=== PATIENT | male | born 1955 | race Caucasian/White ===

== ENCOUNTER → 2016-10-06 | Outpatient (CLI) | payer OTHER ==
[~2016-10-06] MED LIST: ALPR.5 PO; ASPI1TAB69 PO; BISO5TAB5 PO; CYCL1TAB29 PO; GABA300C5 PO; HYDR-3535 PO
[2016-10-06 12:08] LABS: AUTOMATED NEUTROPHIL # 4.1 TH/MM3 (1.8-7.7); BASOPHIL % 0.3 % (0.0-2.0); EOSINOPHIL # 0.1 TH/MM3 (0-0.4); EOSINOPHIL % 2.4 % (0.0-4.0); HEMATOCRIT 51.6 % (39.0-51.0); HEMO FLAGS DIFF FINAL; LYMPH % 22.5 % (9.0-44.0); LYMPHOCYTE # 1.4 TH/MM3 (1.0-4.8); MEAN CELL VOLUME 89.4 FL (80.0-100.0); MEAN CORPUSCULAR HGB CONC 33.6 % (32.0-36.0); MONO % 7.1 % (0.0-8.0); NEUT % 67.7 % (16.0-70.0); PLATELET COUNT 224 TH/MM3 (150-450); RED BLOOD COUNT 5.77 MIL/MM3 (4.50-5.90); RED CELL DISTRIBUTION WIDTH 13.7 % (11.6-17.2); WHITE BLOOD COUNT 6.1 TH/MM3 (4.0-11.0)
[2016-10-06 12:16] LABS: ALT (GPT) 24 U/L (12-78); ANION GAP 5 MEQ/L (5-15); AST (GOT) 30 U/L (15-37); BICARBONATE 29.8 MEQ/L (21.0-32.0); BLOOD UREA NITROGEN 9 MG/DL (7-18); CHLORIDE 105 MEQ/L (98-107); GLOMERULAR FILTRATION RATE 77 ML/MIN (>89); GLUCOSE,FASTING 91 MG/DL (74-99); POTASSIUM 4.4 MEQ/L (3.5-5.1); SODIUM (NA) 140 MEQ/L (136-145)
[2016-10-06 12:19] LABS: ALKALINE PHOSPHATASE 95 U/L (45-117); TOTAL BILIRUBIN ADULT 1.4 MG/DL (0.2-1.0)
== END ==
LOC: CLAB 11:19
PROVIDERS: ATTEND Family Medicine
DX: I10 Essential (primary) hypertension (principal); F41.9 Anxiety disorder, unspecified; R05 Cough
CPT/HCPCS: 36415; 80053; 84153; 85025

== ENCOUNTER → 2017-05-04 | Outpatient (CLI) | payer OTHER ==
[~2017-05-04] MED LIST changes: +CYCL10TA PO; -CYCL1TAB29 PO
--- NOTE | 2017-05-12 12:26 | RSPPFT ---
DATE OF PROCEDURE: 05/04/17 COMMENTS: VOLUMES DYNAMIC: FVC and FEV1 moderately reduced. STATIC: TLC, FRC moderately reduced; RV normal. FLOWS: FEV1% mildly reduced; FEF 25-75 severely reduced. DIFFUSION: Moderately reduced. FLOW VOLUME LOOP: Pattern of variable intrathoracic airways obstruction. IMPRESSION: Moderately severe obstructive ventilatory defect with mild restriction as well. There is a moderate reduction in diffusion and a significant increase in airways resistance. There is no significant improvement post-bronchodilator.
== END ==
LOC: HRSP 12:10
PROVIDERS: ATTEND Internal Medicine
DX: J84.10 Pulmonary fibrosis, unspecified (principal)
CPT/HCPCS: 94060; 94618; 94726; 94729

== ENCOUNTER → 2017-06-22 | Outpatient (CLI) | payer OTHER ==
[~2017-06-22] MED LIST changes: +AUGM875T3 PO; +AZIT250T3 PO; +BISO5TAB2 PO; +COLA100C5 PO; +HYDR-3516 PO; +MONT10TA4 PO; +NAPR220C22 PO; +OXYGENDME NAS.CANULA
[2017-06-22 11:37] LABS: HEMATOCRIT 53.3 % (39.0-51.0); HEMOGLOBIN 18.4 GM/DL (13.0-17.0); MEAN CELL VOLUME 88.3 FL (80.0-100.0); MEAN CORPUSCULAR HEMOGLOBIN 30.5 PG (27.0-34.0); MEAN CORPUSCULAR HGB CONC 34.5 % (32.0-36.0); MEAN PLATELET VOLUME 8.6 FL (7.0-11.0); PLATELET COUNT 227 TH/MM3 (150-450); RED BLOOD COUNT 6.03 MIL/MM3 (4.50-5.90); RED CELL DISTRIBUTION WIDTH 13.6 % (11.6-17.2); WHITE BLOOD COUNT 6.2 TH/MM3 (4.0-11.0)
--- NOTE | 2017-06-22 11:53 | RADRPT ---
EXAM DATE/TIME: 06/22/2017 11:20 [place] COMPARISON: No previous studies available for comparison. INDICATIONS : Evaluate for pneumonia, pneumothorax and communicable diseases. Pre-op right lung biopsy. MEDICAL HISTORY : None. SURGICAL HISTORY : None. ENCOUNTER: Initial ACUITY: 1 day PAIN SCORE: 0/10 LOCATION: chest FINDINGS: Course interstitial changes are seen in both lungs. Mildly prominent cardiac silhouette. No pneumot horax. The portion of the bony skeleton visualized is unremarkable. CONCLUSION: Mild to moderate interstitial prominence. Roberto Carlos Martino MD FACR on June 22, 2017 at 11:50 Board Certified Radiologist. This report was verified electronically.
[2017-06-22 11:54] LABS: INTERNATIONAL NORMALIZED RATIO 1.1 RATIO; PROTHROMBIN TIME - PATIENT 10.7 SEC (9.8-11.6)
[2017-06-22 12:03] LABS: BACTERIA, URINE RARE /hpf; BILIRUBIN, URINE NEG (NEG); BLOOD, URINE NEG (NEG); GLUCOSE,URINE NEG (NEG); HYALINE CAST, URINE 6 /lpf (RARE); KETONE, URINE NEG (NEG); MUCUS URINE FEW /lpf (OCC); NITRITE,URINE NEG (NEG); PH, URINE 5.5 (5.0-8.5); SQUAMOUS EPITHELIAL CELL URINE <1 /hpf (0-5); URINE COLOR YELLOW (YELLW/STRAW); URINE LEUKOCYTE ESTERASE NEG (NEG)
[2017-06-22 12:08] LABS: BICARBONATE 29.8 MEQ/L (21.0-32.0); CALCIUM 8.8 MG/DL (8.5-10.1); CREATININE 0.84 MG/DL (0.60-1.30)
--- NOTE | 2017-06-22 22:07 | EKG ---
Date Performed: 06/22/2017 Time Performed: 10:34:01 PTAGE: 62 years EKG: Sinus rhythm BORDERLINE LEFT AXIS DEVIATION BORDERLINE ECG PREVIOUS TRACING : 12/15/2015 12.24 Since the previous tracing, no significant change noted DOCTOR: Carlos Haji Interpretating Date/Time 06/22/2017 22:05:42
== END ==
LOC: CPRE 10:08
PROVIDERS: ATTEND Thoracic Surgery (Cardiothoracic Vascular Surgery)
DX: Z01.812 Encounter for preprocedural laboratory examination (principal); Z01.811 Encounter for preprocedural respiratory examination; Z01.810 Encounter for preprocedural cardiovascular examination; J84.9 Interstitial pulmonary disease, unspecified; R94.31 Abnormal electrocardiogram [ECG] [EKG]
CPT/HCPCS: 36415; 71046; 80048; 81001; 85027; 85610; 85730; 93005

== ENCOUNTER 2017-06-29 05:34 | Inpatient (IN) | payer OTHER ==
[2017-06-29] VITALS (11 sets, daily range): BP systolic 109–121; BP diastolic 59–77; PULSE 68–88; RESP 16–20; TEMP 97.3–98.4; O2SAT 96–97
[~2017-06-29] VITALS: Ht 182.9 cm; Wt 128.3 kg
[~2017-06-29 05:34] MED LIST changes: -ASPI1TAB69 PO; -AUGM875T3 PO; -AZIT250T3 PO; -BISO5TAB5 PO; -COLA100C5 PO; -CYCL10TA PO; -HYDR-3516 PO; -HYDR-3535 PO; -OXYGENDME NAS.CANULA
[2017-06-29] MEDS ORDERED: LACTATED RINGER'S 1000 ML IV PRN (06:00)
[2017-06-29] MEDS ORDERED: POVIDONE IODINE 5% (ANTISEPSIS KIT) 4 APPLICATIONS EACH NARE PRN (06:00)
[2017-06-29] MEDS ORDERED: CHLORHEXIDINE GLUCONATE 2 % 1 PACK (2 CLOTHS) TOPICAL PRN (06:00)
[2017-06-29] MEDS ORDERED: METOPROLOL TARTRATE 25 MG TAB PO PRN (06:00)
[2017-06-29] MEDS ORDERED: SODIUM CHLORID 0.9% 500 ML IV PRN (06:00)
[2017-06-29] MEDS ORDERED: BUPIVACAINE/EPINEPHRINE 0.5% PF 30 ML VIAL ONE (06:30)
[2017-06-29] MEDS ORDERED: ceFAZolin 2 GM PREMIX 50 ML ONE (06:30)
[2017-06-29] MEDS ORDERED: ALPRAZolam 1 MG TAB PO ONE (07:00)
[2017-06-29] MEDS ORDERED: MIDAZOLAM HCL 2 MG/2 ML VIAL ONE (07:08)
[2017-06-29] MEDS ORDERED: ACETAMINOPHEN 1000 MG/100 ML 100 ML IV ONE ×2 (07:08→07:50)
--- NOTE | 2017-06-29 09:21 | PD.OP ---
cc: Priti Alex MD; Sean Bradshaw MD; Jt Goff MD Operative Report Date of Surgery: June 29, 2017 Preoperative Diagnosis: Postoperative Diagnosis: Procedure: 1. Right Video-Assisted Thoracoscopic Surgery (VATS). 2. Biopsy Right Upper Lobe 3. Intercostal Nerve Block Surgeon: Sean Bradshaw Microbiological Lab Technician(s): Dana Ca Operation and Findings: PREOPERATIVE DIAGNOSES 1. Idiopathic Interstitial Disease 2. Pulmonary Fibrosis POSTOPERATIVE DIAGNOSES Same SURGICAL PROCEDURE 1. Right Video-Assisted Thoracoscopic Surgery (VATS). 2. Biopsy Right Upper Lobe 3. Intercostal Nerve Block SURGEON Sean Bradshaw MD MECHANIC INSULATOR ELIDIA Mayen ANESTHESIA General double lumen endotracheal. VIBRATORY PILE DRIVER ABDULAZIZ Gay MD PREPARATION ChloraPrep. COUNTS Needle, sponge, and instrument counts are correct. DRAINS One [address] COMPLICATIONS None. INDICATIONS The patient is a 62 yo gentleman with bilateral pulmonary interstitial disease of unknown etiology presenting for lung biopsy. DESCRIPTION OF PROCEDURE The patient was brought to the operating room and placed supine on the OR table. Following the induction of adequate general double lumen endotracheal anesthesia and placement of appropriate monitoring devices, the patient was placed in the left lateral decubitus position. The right chest and surrounding areas were then prepped and draped in a standard sterile fashion. A 5 mm camera port was introduced into the 8th intercostal space in mid axillary line, and the camera introduced. A second 5 mm port was then placed anteriorly under direct visual guidance. The entire lung appeared fibrotic. The anterior segment of the upper lobe was grasped and wedged using a surgical stapler through the anterior port. The specimen was removed and sent for histological and microbiological analysis. The camera port was removed and a 28 Fr chest tube was placed in the pleural space. This was maintained in place with a nonabsorbable suture. All of the entry sites were injected with Marcaine 0.5%. Following confirmation of the drain in the proper place, the incisions were closed with 2 layers. The chest drain was attached to a suction device, and sterile dressing applied. Intercostal nerve block was performed using the Marcaine solution. The patient tolerated the procedure well and was extubated and transferred to the recovery room in stable condition. Sean Bradshaw MD June 29, 2017 09:21
[2017-06-29] MEDS ORDERED: SUGAMMADEX SODIUM 200 MG/2 ML VIAL IV PUSH ONE (09:24)
[2017-06-29] MEDS ORDERED: ONDANSETRON ODT 4 MG TAB PO PRN (09:30)
[2017-06-29] MEDS ORDERED: ACETAMINOPHEN/HYDROcodone 325 MG/5 MG TAB PO PRN (09:30)
[2017-06-29] MEDS ORDERED: Post-op Orders (for Pharmacy) OTHER ONE (09:30)
[2017-06-29] MEDS ORDERED: MAGNESIUM HYDROXIDE SUSP 30 ML CUP PO PRN (09:30)
[2017-06-29] MEDS ORDERED: SODIUM CHLORIDE 0.9% FLUSH 10 ML FLUSH IV FLUSH PRN (09:30)
[2017-06-29] MEDS ORDERED: RESP: ALBUTEROL 2.5 MG/3 ML NEB (PRN) NEB (09:30)
[2017-06-29] MEDS ORDERED: ACETAMINOPHEN 325 MG TAB PO PRN (09:30)
[2017-06-29] MEDS ORDERED: NALOXONE HCL 0.4 MG/ML AMP IV PUSH PRN (09:30)
[2017-06-29] MEDS ORDERED: methylPREDNISolone SOD SUCC 125 MG/2 ML VIAL ONE (09:49)
[2017-06-29] MEDS ORDERED: *RESP: ALBUTEROL 2.5 MG/3 ML NEB (PRN) PERIprocedural Use ONLY NEB ONE (09:50)
[2017-06-29] MEDS ORDERED: DO NOT ADM ANY ANTICOAGULANT DRUGS PRN (10:04)
[2017-06-29] MEDS: RESP: ALBUTEROL 2.5 MG/3 ML NEB (SCH) NEB ×3 (10:30→21:55)
[2017-06-29] MEDS ORDERED: *morphine SULFATE 8 MG/ML PERIprocedure ONLY ONE (10:42)
[2017-06-29] MEDS: KETOROLAC TROMETHAMINE 30 MG/ML (IVP) VIAL IV PUSH SCH ×3 (11:00→22:55)
--- NOTE | 2017-06-29 11:30 | RADRPT ---
EXAM DATE: 06/29/2017 11:15 AM EDT AGE/SEX: 62 years / Male INDICATIONS: Status Post Right Thoracotomy. Right Chest tube. CLINICAL DATA: This is the patient's initial encounter. Patient reports that signs and symptoms have been present for 1 day and indicates a pain score of 9/10. MEDICAL/SURGICAL HISTORY: None. None. COMPARISON: [facility] [place], CHEST PA & LAT, 06/22/2017. . FINDINGS: Status post right thoracotomy. There is a right-sided chest tube in place. There is no evidence of pn eumothorax. There are scattered parenchymal infiltrates in both lungs predominantly in the bases, rig ht greater than left. The heart size is enlarged but stable. The bony structures are stable. There is subcutaneous emphysema along the right chest wall. CONCLUSION: Status post right thoracotomy. Right chest tube in place. No pneumothorax. Electronically signed by: Irwin Burciaga MD 06/29/2017 11:29 AM EDT
--- NOTE | 2017-06-29 11:38 | PD.CAR.PN ---
CVT Progress Note Subjective/Hospital Course: 62/ male presented with progressive symptoms fo cough and allergies . CT chest demonstrated diffuse interstitial lung disease with patchy ground glass opacity , , pt denied any fevers , chills or hemoptysis. He did however have a long standing h/o of exposure to paints and inhalation particles without mask filtration PMH: anxiety, HTN, Interstitial lung disease surgery: 06/29 1. Right Video-Assisted Thoracoscopic Surgery (VATS). 2. Biopsy Right Upper Lobe 3. Intercostal Nerve Block Objective: Vital Signs Date Time Temp Pulse Resp B/P (MAP) Pulse Ox O2 Delivery O2 Flow Rate FiO2 06/29/17 07:07 99.0 78 18 99/69 (79) 91 (1) Interstitial lung disease (2) right video assited thoracoscopy Kyung Jo June 29, 2017 11:37
[2017-06-29] MEDS ORDERED: ePHEDrine/NS 25 MG/5 ML SYRINGE IV ONE (12:00)
[2017-06-29] MEDS ORDERED: PROPOFOL 200 MG/20 ML AMP IV ONE (12:00)
[2017-06-29] MEDS ORDERED: PHENYLEPH/NS 1000 MCG/10 ML SYR IV ONE (12:00)
[2017-06-29] MEDS ORDERED: ONDANSETRON HCL 4 MG/2 ML VIAL IV ONE (12:00)
[2017-06-29] MEDS ORDERED: DEXAMETHASONE SOD PHOS 4 MG/ML VIAL IV ONE (12:00)
[2017-06-29] MEDS ORDERED: ROCURONIUM INJ 50 MG/5 ML SYRINGE IV PUSH ONE (12:00)
[2017-06-29] MEDS ORDERED: SODIUM CHLORID 0.9% 500 ML INJ 500 ML IV ONE (12:00)
[2017-06-29] MEDS ORDERED: NORMOSOL R INJ 1,000 ML IV ONE (12:00)
[2017-06-29] MEDS ORDERED: LIDOCAINE HCL 1% PF 5 ML SYRINGE OTHER ONE (12:00)
[2017-06-29] MEDS ORDERED: NEOSTIGMINE 5 MG/5 ML SYRINGE IV PUSH ONE (12:00)
[2017-06-29] MEDS ORDERED: GLYCOPYRROLATE 1 MG/5 ML SYRINGE IV PUSH ONE (12:00)
[2017-06-29] MEDS: ACETAMINOPHEN 1000 MG/100 ML 100 ML IV SCH ×2 (12:38→20:31)
[2017-06-29] MEDS: PCA - TOTAL MG MORPHINE DELIVERED PER SHIFT SCH ×2 (12:39→20:34)
[2017-06-29] MEDS: MORPHINE SULFATE 30 MG/30 ML PCA IV SCH ×3 (15:12→22:53)
[2017-06-29] MEDS: PANTOPRAZOLE SOD 40 MG DELAYED RELEASE TAB PO SCH (20:32)
[2017-06-29] MEDS: DOCUSATE CALCIUM 240 MG CAP PO SCH (20:32)
[2017-06-29] MEDS: SODIUM CHLORIDE 0.9% FLUSH 10 ML FLUSH IV FLUSH SCH (20:33)
[2017-06-30] VITALS (27 sets, daily range): BP systolic 99–131; BP diastolic 55–89; PULSE 63–94; RESP 16–18; TEMP 97.3–98.3; O2SAT 92–97
[2017-06-30] MEDS: RESP: ALBUTEROL 2.5 MG/3 ML NEB (SCH) NEB ×4 (03:27→20:36)
[2017-06-30] MEDS: ACETAMINOPHEN 1000 MG/100 ML 100 ML IV SCH ×2 (03:43→08:12)
[2017-06-30 03:56] LABS: AUTOMATED NEUTROPHIL # 13.4 TH/MM3 (1.8-7.7); BASOPHIL % 0.1 % (0.0-2.0); HEMATOCRIT 46.1 % (39.0-51.0); HEMOGLOBIN 15.9 GM/DL (13.0-17.0); LYMPH % 4.2 % (9.0-44.0); LYMPHOCYTE # 0.6 TH/MM3 (1.0-4.8); MEAN CELL VOLUME 89.5 FL (80.0-100.0); MEAN CORPUSCULAR HEMOGLOBIN 30.9 PG (27.0-34.0); MEAN CORPUSCULAR HGB CONC 34.5 % (32.0-36.0); MEAN PLATELET VOLUME 8.6 FL (7.0-11.0); MONO % 6.3 % (0.0-8.0); NEUT % 89.4 % (16.0-70.0); PLATELET COUNT 197 TH/MM3 (150-450); RED BLOOD COUNT 5.15 MIL/MM3 (4.50-5.90); RED CELL DISTRIBUTION WIDTH 13.5 % (11.6-17.2)
[2017-06-30 04:15] LABS: BICARBONATE 27.3 MEQ/L (21.0-32.0); CALCIUM 8.1 MG/DL (8.5-10.1); CREATININE 1.15 MG/DL (0.60-1.30)
--- NOTE | 2017-06-30 05:10 | RADRPT ---
EXAM DATE: 06/30/2017 4:49 AM EDT AGE/SEX: 62 years / Male INDICATIONS: Shortness of breath post thoracotomy. CLINICAL DATA: This is the patient's subsequent encounter. Patient reports that signs and symptoms h ave been present for 2 days and indicates a pain score of 6/10. MEDICAL/SURGICAL HISTORY: None. . Thoracotomy [place] [facility] [place] . FINDINGS: A single AP semierect view of the chest was obtained and again demonstrates the right-sided chest tub e in place with no pneumothorax. The lungs are better aerated with mild decrease in diffuse bilateral pulmonary opacity. The heart size remains enlarged. Costophrenic angles are blunted. Mild subcutaneo us emphysema is again noted over the right lateral chest wall. CONCLUSION: 1. The right-sided chest tube remains in place with no pneumothorax. 2. Interval decrease in hazy opacity in both lungs. 3. The heart size remains mildly enlarged. Electronically signed by: Robles Post MD 06/30/2017 5:09 AM EDT
[2017-06-30] MEDS: KETOROLAC TROMETHAMINE 30 MG/ML (IVP) VIAL IV PUSH SCH (05:12)
[2017-06-30] MEDS: MORPHINE SULFATE 30 MG/30 ML PCA IV SCH (05:15)
[2017-06-30] MEDS: PCA - TOTAL MG MORPHINE DELIVERED PER SHIFT SCH (05:22)
[2017-06-30] MEDS: SODIUM CHLORIDE 0.9% FLUSH 10 ML FLUSH IV FLUSH SCH ×2 (09:00→21:09)
[2017-06-30] MEDS ORDERED: AZITHROMYCIN 250 MG TAB PO SCH (10:00)
[2017-06-30] MEDS: ACETAMINOPHEN/HYDROcodone 325 MG/5 MG TAB PO PRN ×3 (11:05→21:09)
[2017-06-30] MEDS: BISOPROLOL FUMARATE 5 MG TAB PO SCH (12:24)
--- NOTE | 2017-06-30 13:41 | PD.CAR.PN ---
CVT Progress Note Subjective/Hospital Course: 62/ male presented with progressive symptoms fo cough and allergies . CT chest demonstrated diffuse interstitial lung disease with patchy ground glass opacity , , pt denied any fevers , chills or hemoptysis. He did however have a long standing h/o of exposure to paints and inhalation particles without mask filtration PMH: anxiety, HTN, Interstitial lung disease surgery: 06/29 1. Right Video-Assisted Thoracoscopic Surgery (VATS). 2. Biopsy Right Upper Lobe 3. Intercostal Nerve Block 06/30 minimal drainage in chest tube/ no air leak chest tube removed without difficulty has productive coarse cough thick beige sputum sputum culture sent / started on zithromax pulm toileting eval for dc home in am Objective: GENERAL: A&O x 3 SKIN: Warm and dry. incision intact to right posterior chest wall HEAD: Normocephalic. EYES: No scleral icterus. No injection or drainage. NECK: Supple, trachea midline. No JVD or lymphadenopathy. CARDIOVASCULAR: Regular rate and rhythm without murmurs, gallops, or rubs. RESPIRATORY: Breath sounds equal bilaterally. No accessory muscle use.coarse bilateral breath sounds GASTROINTESTINAL: Abdomen soft, non-tender, nondistended. MUSCULOSKELETAL: No cyanosis, or edema. BACK: Nontender without obvious deformity. No CVA tenderness. Vital Signs Date Time Temp Pulse Resp B/P (MAP) Pulse Ox O2 Delivery O2 Flow Rate FiO2 06/30/17 12:00 80 06/30/17 11:01 98.1 84 18 118/58 (78) 93 06/30/17 11:00 80 06/30/17 10:00 92 06/30/17 09:07 96 Nasal Cannula 2.00 06/30/17 09:00 74 06/30/17 08:01 97.6 85 18 124/67 (86) 93 06/30/17 08:00 82 06/30/17 07:00 76 06/30/17 05:22 16 06/30/17 05:20 16 06/30/17 05:15 16 06/30/17 05:00 74 06/30/17 04:00 88 06/30/17 04:00 98.0 93 16 99/55 (70) 97 06/30/17 03:00 74 06/30/17 02:00 80 5/24/18 01:00 84 06/30/17 00:00 97.3 93 16 128/69 (88) 93 06/30/17 00:00 93 06/29/17 23:55 16 06/29/17 23:00 87 06/29/17 22:53 16 06/29/17 22:00 68 06/29/17 21:00 76 06/29/17 20:34 14 06/29/17 20:00 97.3 88 16 121/77 (92) 96 06/29/17 20:00 82 06/29/17 19:00 80 06/29/17 17:07 97 Nasal Cannula 3.00 06/29/17 16:00 98.4 83 20 109/59 (76) 96 06/29/17 16:00 81 06/29/17 15:13 15 06/29/17 15:12 16 06/29/17 15:00 76 06/29/17 14:00 76 Labs: Laboratory Tests Test 06/30/17 03:23 White Blood Count 15.0 TH/MM3 (4.0-11.0) Red Blood Count 5.15 MIL/MM3 (4.50-5.90) Hemoglobin 15.9 GM/DL (13.0-17.0) Hematocrit 46.1 % (39.0-51.0) Mean Corpuscular Volume 89.5 FL (80.0-100.0) Mean Corpuscular Hemoglobin 30.9 PG (27.0-34.0) Mean Corpuscular Hemoglobin Concent 34.5 % (32.0-36.0) Red Cell Distribution Width 13.5 % (11.6-17.2) Platelet Count 197 TH/MM3 (150-450) Mean Platelet Volume 8.6 FL (7.0-11.0) Neutrophils (%) (Auto) 89.4 % (16.0-70.0) Lymphocytes (%) (Auto) 4.2 % (9.0-44.0) Monocytes (%) (Auto) 6.3 % (0.0-8.0) Eosinophils (%) (Auto) 0.0 % (0.0-4.0) Basophils (%) (Auto) 0.1 % (0.0-2.0) Neutrophils # (Auto) 13.4 TH/MM3 (1.8-7.7) Lymphocytes # (Auto) 0.6 TH/MM3 (1.0-4.8) Monocytes # (Auto) 1.0 TH/MM3 (0-0.9) Eosinophils # (Auto) 0.0 TH/MM3 (0-0.4) Basophils # (Auto) 0.0 TH/MM3 (0-0.2) CBC Comment DIFF FINAL Differential Comment Blood Urea Nitrogen 22 MG/DL (7-18) Creatinine 1.15 MG/DL (0.60-1.30) Random Glucose 146 MG/DL (74-106) Calcium Level 8.1 MG/DL (8.5-10.1) Sodium Level 135 MEQ/L (136-145) Potassium Level 4.5 MEQ/L (3.5-5.1) Chloride Level 99 MEQ/L (98-107) Carbon Dioxide Level 27.3 MEQ/L (21.0-32.0) Anion Gap 9 MEQ/L (5-15) Estimat Glomerular Filtration Rate 64 ML/MIN (>89) Result Diagram: 06/30/17 0323 06/30/17 0323 Telemetry: NSR (1) Interstitial lung disease (2) right video assited thoracoscopy Plan: chest tube dc f/u cxr in am path pending sputum culture pending start Kyung Crockett June 30, 2017 13:41
[2017-06-30] MEDS ORDERED: COLA100C5 PO (13:47)
[2017-06-30] MEDS ORDERED: HYDR-3516 PO (13:47)
[2017-06-30] MEDS ORDERED: AZIT250T3 PO (13:47)
--- NOTE | 2017-06-30 13:49 | HHI.FF ---
Face to Face Verification Diagnosis: (1) Interstitial lung disease (2) right video assited thoracoscopy Home Health Nursing Order: Medication education-adverse effect Wound care and dressing changes Nursing assessment with vital signs Instructions: Thoracic Surgery patients Mandatory frequency Assess and evaluation, 2-3 x a week for one week Initial visit 1. Review post chest surgery instructions chest precautions, Activity, Elastic hose, Incision care, Driving, Incentive spirometry, Smoking, [place] , Work and other) 2. Need Betadine to paint incision 3. Medication reconciliation 4. Importance of follow up care/ check on appointments 5. Make calendar record temperature daily 6. When to call Home nurse, review instructions, phone list 7. Incentive Spirometry, demonstration Visit 1- Begin discharge instruction for patient family and/ or caregiver using teach back method- 1. Signs and symptoms of infection 2. Disease characteristics 3. Medicines and side effects 4. Foods and nutrition/ appetite 5. Infection control/ hand washing/ hygiene Visit 2- Continue teaching 1. Discharge instructions- include additional information on smoking cessation , Visit 3- Continue teaching- 1. Cough and deep breathing, incision monitoring. For any questions please call : / [employer] [facility] Incentive spirometry Q1 hr x 10, while awake, also use acapella device hourly whole Chest wall precautions: NO pushing or pulling, ( pt must use chest pillow support chest with all activities and with coughing Daily incision care: ok to shower ( 48hrs after chest tube removed) and then daily, no tub bath. Wash all incisions with liquid dial soap, clean wash cloth to each site, rinse and pat dry. Observe for any signs of infection, such as drainage which is dark yellow, leon, green or foul smelling. Immediately report to the surgeon any drainage from the chest incision, or legs, and for any abnormal drainage from the chest tube sites. Notify surgeon if any temp > 101.5 degrees F. When specialty dressing removed/ or if you do not have one, continue to shower daily as above, then rinse and pat incision dry and paint with betadine daily x 5 days. Allow steri strips to fall off if you have any. Avoid lotions, creams, salves, oils, etc. for the first month F/U appointment: as per [place] instructions: PCP in 2 weeks, CV surgeon 2 weeks, [employer] Services Dispatcher 3-4 weeks For any questions regarding incisions/ dressing / meds / post op care or above Symptoms, Tuesday 8am-5pm Heart & Vascular Surgery Office ( Dr. Bradshaw & Dr. Dan), After Hours / Nights (5pm -8am) Weekends and Holidays Please call [facility] Cardiac Intermediate Care Unit (CIC) Charge Nurse I have seen patient Robles Beckham on 06/30/17. My clinical findings support the need for the requested home health care services because: Deconditioned w/ increased weakness I certify that my clinical findings support that this patient is homebound because: Post-op weakness Kyung Jo June 30, 2017 13:49
[2017-06-30] MEDS: GABAPENTIN 300 MG CAP PO SCH (21:09)
[2017-06-30] MEDS: DOCUSATE CALCIUM 240 MG CAP PO SCH (21:09)
[2017-06-30] MEDS: PANTOPRAZOLE SOD 40 MG DELAYED RELEASE TAB PO SCH (21:09)
[2017-07-01] VITALS (30 sets, daily range): BP systolic 105–131; BP diastolic 56–80; PULSE 70–95; RESP 16–18; TEMP 97.7–98.6; O2SAT 91–98
[2017-07-01] MEDS: ALPRAZolam 0.5 MG TAB PO PRN ×3 (01:07→21:57)
[2017-07-01] MEDS: ACETAMINOPHEN/HYDROcodone 325 MG/5 MG TAB PO PRN ×5 (01:08→21:58)
[2017-07-01] MEDS: RESP: ALBUTEROL 2.5 MG/3 ML NEB (SCH) NEB ×4 (03:40→21:52)
--- NOTE | 2017-07-01 06:30 | RADRPT ---
EXAM DATE: 07/01/2017 6:23 AM EDT AGE/SEX: 62 years / Male INDICATIONS: Chest tube removal- rule out pneumothorax. CLINICAL DATA: This is the patient's subsequent encounter. Patient reports that signs and symptoms h ave been present for 1 day and indicates a pain score of Nonresponsive. MEDICAL/SURGICAL HISTORY: None. . Thoracotomy. [place] [facility] [place]. . FINDINGS: The heart size appears enlarged. The lungs are essentially diffuse mixed interstitial and alveolar co nsolidation. A significant effusion is not clearly seen. CONCLUSION: Diffuse consolidation likely related to underlying process such as diffuse edema or diffuse inflammat ory change. Electronically signed by: Flavio Arechiga MD 07/01/2017 6:29 AM EDT
[2017-07-01] MEDS: AZITHROMYCIN 250 MG TAB PO SCH (08:37)
[2017-07-01] MEDS: GABAPENTIN 300 MG CAP PO SCH ×2 (08:37→21:57)
[2017-07-01] MEDS: HYDROCHLOROTHIAZIDE 25 MG TAB PO SCH (08:38)
[2017-07-01] MEDS: SODIUM CHLORIDE 0.9% FLUSH 10 ML FLUSH IV FLUSH SCH ×2 (08:38→21:00)
[2017-07-01] MEDS: BISOPROLOL FUMARATE 5 MG TAB PO SCH (08:47)
[2017-07-01] MEDS ORDERED: AZITHROMYCIN 250 MG TAB PO SCH (09:00)
[2017-07-01] MEDS ORDERED: POTASSIUM CHLORIDE 10 MEQ CONTROLLED RELEASE TAB PO ONE (09:45)
[2017-07-01] MEDS ORDERED: FUROSEMIDE 40 MG/4 ML VIAL IV PUSH ONE (09:45)
[2017-07-01] MEDS: LEVOFLOXACIN 500 MG PREMIX INJ 100 ML IV SCH (09:45)
[2017-07-01] MEDS ORDERED: AUGM875T3 PO (12:43)
--- NOTE | 2017-07-01 13:07 | HHI.DS ---
Discharge Summary Admission Date June 29, 2017 at 05:34 Discharge Date: July 01, 2017 Admitting Diagnosis 1. Idiopathic Interstitial Disease 2. Pulmonary Fibrosis (1) Hypoxemia ICD Codes: R09.02 - Hypoxemia (2) right video assited thoracoscopy (3) Interstitial lung disease ICD Codes: J84.9 - Interstitial pulmonary disease, unspecified Procedures 1. Right Video-Assisted Thoracoscopic Surgery (VATS). 06/29 2. Biopsy Right Upper Lobe 3. Intercostal Nerve Block Brief History Subjective/Hospital Course: 62/ male presented with progressive symptoms fo cough and allergies . CT chest demonstrated diffuse interstitial lung disease with patchy ground glass opacity , , pt denied any fevers , chills or hemoptysis. He did however have a long standing h/o of exposure to paints and inhalation particles without mask filtration PMH: anxiety, HTN, Interstitial lung disease surgery: 06/29 1. Right Video-Assisted Thoracoscopic Surgery (VATS). 2. Biopsy Right Upper Lobe 3. Intercostal Nerve Block CBC/BMP: 06/30/17 0323 06/30/17 0323 Significant Findings Laboratory Tests Test 06/30/17 03:23 White Blood Count 15.0 TH/MM3 (4.0-11.0) Neutrophils (%) (Auto) 89.4 % (16.0-70.0) Lymphocytes (%) (Auto) 4.2 % (9.0-44.0) Neutrophils # (Auto) 13.4 TH/MM3 (1.8-7.7) Lymphocytes # (Auto) 0.6 TH/MM3 (1.0-4.8) Monocytes # (Auto) 1.0 TH/MM3 (0-0.9) Blood Urea Nitrogen 22 MG/DL (7-18) Random Glucose 146 MG/DL (74-106) Calcium Level 8.1 MG/DL (8.5-10.1) Sodium Level 135 MEQ/L (136-145) Estimat Glomerular Filtration Rate 64 ML/MIN (>89) Imaging Last Impressions Chest X-Ray 07/01/17 0600 Signed Impressions: CONCLUSION: Diffuse consolidation likely related to underlying process such as diffuse román a or diffuse inflammatory change. PE at Discharge GENERAL: A&O x 3 SKIN: Warm and dry. incision intact and well approximated right postero lateral chest / dressing over chest tube site surveyor: Normocephalic. EYES: No scleral icterus. No injection or drainage. NECK: Supple, trachea midline. No JVD or lymphadenopathy. CARDIOVASCULAR: Regular rate and rhythm without murmurs, gallops, or rubs. RESPIRATORY: Breath sounds equal bilaterally. No accessory muscle use. coarse breath sounds GASTROINTESTINAL: Abdomen soft, non-tender, nondistended. MUSCULOSKELETAL: No cyanosis, or edema. BACK: Nontender without obvious deformity. No CVA tenderness. Hospital Course 06/30 minimal drainage in chest tube/ no air leak chest tube removed without difficulty has productive coarse cough thick beige sputum sputum culture sent / started on zithromax pulm toileting eval for dc home in am 07/01 CXR noted, dose of lasix given preliminary sputum gram + add Augmentin x 10 days will need home 02 dc today Pt Condition on Discharge: Good Discharge Disposition: Disch w/ Home Health Serv Discharge Instructions DIET: Follow Instructions for: Heart Healthy Diet Activities you can perform: Full Weight Bearing, Shower Only-No Bath Activities to avoid: Strenuous Activity, Driving Additional Activity Instructio: no driving x 1-2 weeks and with no recent pain meds Incentive spirometry Q1 hr x 10, while awake, also use acapella device hourly whole Chest wall precautions: NO pushing or pulling, ( pt must use chest pillow support chest with all activities and with coughing Daily incision care: ok to shower ( 48hrs after chest tube removed) and then daily, no tub bath. Wash all incisions with liquid dial soap, clean wash cloth to each site, rinse and pat dry. Observe for any signs of infection, such as drainage which is dark yellow, leon, green or foul smelling. Immediately report to the surgeon any drainage from the chest incision, or legs, and for any abnormal drainage from the chest tube sites. Notify surgeon if any temp >101.5 degrees F. When specialty dressing removed/ or if you do not have one, continue to shower daily as above, then rinse and pat incision dry and paint with betadine daily x 5 days. Allow steri strips to fall off if you have any. Avoid lotions, creams, salves, oils, etc. for the first month For Dr. Dan patients , please obtain PA & Lat CXR in 2 weeks, results to Dr. Dan ( prescription will be given) ( ) (Tele: [phone]) , F/U appointment: as per [place] instructions: PCP in 2 weeks, CV surgeon 2 weeks, Warehouse Associate 3-4 weeks For any questions regarding incisions/ dressing / meds / post op care or above Symptoms, Tuesday 8am-5pm Heart & Vascular Surgery Office ( Dr. Bradshaw & Dr. Dan), After Hours / Nights (5pm -8am) Weekends and Holidays Please call [facility] Cardiac Intermediate Care Unit (CIC) Charge Nurse Follow up Referrals: PCP Follow-up - 2 Weeks with Priti Alex MD Pulmonology - 4 Weeks with Jt Goff MD Surgical - 2 Weeks with Kyung Jo New Medications: Amoxicillin-Clavulanate (Augmentin) 875-125 Mg Tab 1 TAB PO BID for Infection for 10 Days, #20 TAB 0 Refills Docusate Sodium (Colace) 100 Mg Capsule 100 MG PO BID for Prevent Constipation, #60 CAP 0 Refills Azithromycin (Azithromycin) 250 Mg Tab 250 MG PO DAILY for antibiotic, #3 TAB 0 Refills Hydrocodone/Acetaminophen (Hydrocodone-Acetamin 5-325 mg) 5 Mg-325 Mg Tablet 1 TAB PO Q4H PRN for PAIN SCALE 1 TO 5, #40 TAB 0 Refills Continued Medications: Alprazolam (Xanax) 0.5 Mg Tab 0.5 MG PO BID PRN for ANXIETY, TAB 0 Refills Bisoprolol-Hydrochlorothiazide (Bisoprolol-Hydrochlorothiazide) 5-6.25 Mg Tab 1 TAB PO DAILY for Blood Pressure Management, #30 TAB 0 Refills Gabapentin (Gabapentin) 300 Mg Cap 300 MG PO BID for Pain Management, #90 CAP 2 Refills Montelukast (Montelukast) 10 Mg Tab 10 MG PO HS for Allergies, #30 TAB 0 Refills Naproxen Sodium (Aleve) 220 Mg Capsule 1 CAP PO DAILY for Pain Management Kyung Jo July 01, 2017 13:07
[2017-07-01] MEDS ORDERED: OXYGENDME NAS.CANULA ×2 (15:14→16:22)
[2017-07-01] MEDS: PANTOPRAZOLE SOD 40 MG DELAYED RELEASE TAB PO SCH (21:57)
[2017-07-01] MEDS: DOCUSATE CALCIUM 240 MG CAP PO SCH (21:57)
[2017-07-02] VITALS (18 sets, daily range): BP systolic 115–129; BP diastolic 59–70; PULSE 72–88; RESP 16; TEMP 98.3–98.8; O2SAT 95–99
[2017-07-02] MEDS: ACETAMINOPHEN/HYDROcodone 325 MG/5 MG TAB PO PRN ×3 (03:58→13:34)
[2017-07-02] MEDS: RESP: ALBUTEROL 2.5 MG/3 ML NEB (SCH) NEB ×2 (04:02→08:22)
[2017-07-02] MEDS: GABAPENTIN 300 MG CAP PO SCH (09:05)
[2017-07-02] MEDS: AZITHROMYCIN 250 MG TAB PO SCH (09:05)
[2017-07-02] MEDS: HYDROCHLOROTHIAZIDE 25 MG TAB PO SCH (09:06)
[2017-07-02] MEDS: BISOPROLOL FUMARATE 5 MG TAB PO SCH (09:07)
[2017-07-02] MEDS: LEVOFLOXACIN 500 MG PREMIX INJ 100 ML IV SCH (09:09)
[2017-07-02] MEDS: SODIUM CHLORIDE 0.9% FLUSH 10 ML FLUSH IV FLUSH SCH (09:09)
--- NOTE | 2017-07-02 09:30 | PD.CAR.PN ---
CVT Progress Note Subjective/Hospital Course: 62/ male presented with progressive symptoms fo cough and allergies . CT chest demonstrated diffuse interstitial lung disease with patchy ground glass opacity , , pt denied any fevers , chills or hemoptysis. He did however have a long standing h/o of exposure to paints and inhalation particles without mask filtration PMH: anxiety, HTN, Interstitial lung disease surgery: 06/29 1. Right Video-Assisted Thoracoscopic Surgery (VATS). 2. Biopsy Right Upper Lobe 3. Intercostal Nerve Block 06/30 minimal drainage in chest tube/ no air leak chest tube removed without difficulty has productive coarse cough thick beige sputum sputum culture sent / started on zithromax pulm toileting eval for dc home in am 07/02 Apparently not discharged yesterday due to home Oxygen arrangements not available Hopefully home today with O2 Objective: Vital Signs Date Time Temp Pulse Resp B/P (MAP) Pulse Ox O2 Delivery O2 Flow Rate FiO2 07/02/17 08:24 96 Nasal Cannula 3.00 07/02/17 07:57 98.8 79 16 129/70 (89) 96 07/02/17 06:00 74 07/02/17 05:00 88 07/02/17 04:09 98.4 75 16 123/67 (85) 95 07/02/17 04:00 75 07/02/17 03:00 74 07/02/17 02:00 76 07/02/17 01:00 72 07/02/17 00:00 74 07/02/17 00:00 98.3 74 16 127/69 (88) 99 07/01/17 23:00 83 07/01/17 22:00 80 07/01/17 21:52 96 Nasal Cannula 3.00 07/01/17 21:00 80 07/01/17 20:00 98.3 80 16 131/56 (81) 98 07/01/17 20:00 78 07/01/17 19:00 84 07/01/17 18:01 86 07/01/17 17:01 86 07/01/17 16:00 78 07/01/17 15:01 98.6 88 18 105/63 (77) 92 07/01/17 15:00 88 07/01/17 14:00 76 07/01/17 13:01 78 07/01/17 12:00 86 07/01/17 11:01 98.0 84 18 121/80 (94) 91 07/01/17 11:00 88 07/01/17 10:01 80 Result Diagram: 06/30/17 0323 06/30/17 0323 (1) Interstitial lung disease (2) right video assited thoracoscopy Plan: chest tube dc f/u cxr in am path pending sputum culture pending start zithromax Sean Bradshaw MD July 02, 2017 09:30
--- NOTE | 2017-07-16 08:28 | PQ ---
Physician Query Response Document PATIENT: DAVID OCAMPO : [id number] ADMIT DATE: 06/29/2017 5:34 AM DISCH DATE: 07/02/2017 2:18 PM RESPONDING PROVIDER #: [email or web address] QUERY TEXT: Clarification of Clinical Diagnostic Findings Please clarify documentation or clinical relevance for the clinical / diagnostic findings or whether those are insignificant or unable to be further specified: Are you in agreement with the Pathology r eport findings as documented above under Clinical Indicators? If you have any additional questions/comments and/or concerns, please do not hesitate to reach out to the CDI/Coding Hotline, Ext. [phone]. 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 TJG/westley COMMENT: Lymphoid hyperplasia is an unusual manifestation of chronic eosinophilic pneumonia. Lympho id hyperplasia has been observed in cases of chronic eosinophilic pneumonia associated with amiodaron e induced lung toxicity. Dr. Joby Dumont has reviewed the chest CT and concurs the radiographic find ings are consistent with chronic eosinophilic pneumonia. This case was discussed with Dr. Roberto Carlos ragland on 07/07/17. Query created by: Nicoel La on 07/11/2017 9:19 AM RESPONSE TEXT: Agree with histologic diagnosis Electronically signed by: Sean Bradshaw MD 07/16/2017 8:24 AM
== END 2017-07-02 14:18 | disposition home health service (06) | DRG 168 ==
LOC: HSDI 05:34 → HCPC 12:04
PROVIDERS: ADMIT Thoracic Surgery (Cardiothoracic Vascular Surgery); ATTEND Thoracic Surgery (Cardiothoracic Vascular Surgery)
PROC: 3E0T3BZ Introduction of Anesthetic Agent into Peripheral Nerves and Plexi, Percutaneous Approach (ICD-10-PCS; 2017-06-29)
PROC: 0BBC4ZX Excision of Right Upper Lung Lobe, Percutaneous Endoscopic Approach, Diagnostic (ICD-10-PCS; principal; 2017-06-29 07:22)
DX: J82 Pulmonary eosinophilia, not elsewhere classified (principal); J84.10 Pulmonary fibrosis, unspecified; G62.9 Polyneuropathy, unspecified; I10 Essential (primary) hypertension; K21.9 Gastro-esophageal reflux disease without esophagitis; E66.9 Obesity, unspecified; Z68.38 Body mass index [BMI] 38.0-38.9, adult; M54.2 Cervicalgia; M54.9 Dorsalgia, unspecified; Z87.891 Personal history of nicotine dependence
CPT/HCPCS: 71045; 80048; 85025; 86850; 86900; 86901; 87015; 87070; 87102; 87116; 87205; 87206; 88307; 94150; 94618; 94640; 94664; J0131; J0690; J1100; J1885; J1940; J1956; J2250; J2270; J2370; J2405; J2710; J2930; J3010; J7040; J7120; J7613